=== PATIENT | male | born 1980 | race African-American/Black ===

== ENCOUNTER 2016-11-11 09:47 | Emergency (ER) | payer SELFPAY | END 2016-11-11 10:22 | disposition home or self-care (01) | LOC: D.ER 09:47 | DX: J06.9 Acute upper respiratory infection, unspecified (principal); I10 Essential (primary) hypertension ==

== ENCOUNTER 2017-02-06 21:50 | Emergency (ER) | payer SELFPAY | END 2017-02-06 23:15 | disposition home or self-care (01) | LOC: D.ER 21:50 | DX: S29.011A Strain of muscle and tendon of front wall of thorax, initial encounter (principal); X50.0XXA Overexertion from strenuous movement or load, initial encounter; Y93.89 Activity, other specified; Y92.89 Other specified places as the place of occurrence of the external cause; I10 Essential (primary) hypertension ==

== ENCOUNTER 2017-03-16 16:19 | Emergency (ER) | payer SELFPAY ==
[2017-03-16 16:52] LABS: APPEARANCE CLEAR (CLEAR); COLOR YELLOW (YELLOW); LEUKOCYTE ESTERASE NEGATIVE (NEGATIVE); NITRITE NEGATIVE (NEGATIVE); PROTEIN NEGATIVE (NEGATIVE); SPECIFIC GRAVITY 1.025 (1.005-1.020)
[2017-03-16 16:53] LABS: BILIRUBIN NEGATIVE (NEGATIVE); GLUCOSE NEGATIVE (NEGATIVE); KETONE NEGATIVE (NEGATIVE); UROBILINOGEN NORMAL (NORMAL)
[2017-03-20 03:10] LABS: CHLAMYDIA TRACHOMATIS, NAA Negative (Negative)
== END 2017-03-16 17:38 | disposition home or self-care (01) ==
LOC: D.ER 16:19
PROVIDERS: Emergency Medicine; Nurse Practitioner Family
DX: Z20.2 Contact with and (suspected) exposure to infections with a predominantly sexual mode of transmission (principal); R30.0 Dysuria; F17.200 Nicotine dependence, unspecified, uncomplicated; I10 Essential (primary) hypertension